=== PATIENT | female | born 1965 | race Caucasian/White ===

== ENCOUNTER 2016-09-23 10:49 | Emergency (ER) | payer OTHER ==
[~2016-09-23] VITALS: Ht 162.6 cm; Wt 68.0 kg
[~2016-09-23 10:49] MED LIST: ACETAMINOPHEN-1 EAC1 PO; FLAGYL500 MG PO; FLEXERIL PO; HYDROCODONE-AP1 EAC6 PO; IBUPROFEN 400400 M1 PO; IBUPROFEN 800800 M1 PO; LIDOCAINE VISC100 M1 SWISH&SPIT; MEDROLDOSEPACK PO; MOBIC7.5 MG PO; NAPROSYN500 MG PO; NOHOMEMEDICATIONS; NORCO 10-325 T1 EACH PO; NORCO 5-325 TA1 EAC1 PO; NORCO 5-325 TA1 EACH PO; NORFLEX100 MG PO; PENICILLIN V P500 MG PO; PENICILLIN VK500 M1 PO; ULTRAM 50MG TAB50 MG PO; XANAX 0.5 MG0.5 MG PO; ZOFRAN ODT4 MG PO
[2016-09-23 10:53] VITALS: BP 143/83
[2016-09-23] MEDS ORDERED: IBUPROFEN 800800 M1 PO (10:56)
[2016-09-23] MEDS ORDERED: NAPROSYN500 MG PO (10:56)
[2016-09-23] MEDS ORDERED: ROBAXIN 750 MG750 M1 PO (11:09)
== END 2016-09-23 12:04 | disposition home or self-care (01) ==
LOC: ER 10:49
DX: G89.29 Other chronic pain (principal); M54.5 Low back pain; Z98.890 Other specified postprocedural states; Z88.5 Allergy status to narcotic agent; Z88.6 Allergy status to analgesic agent; F17.210 Nicotine dependence, cigarettes, uncomplicated